=== PATIENT | male | born 1930 | race Caucasian/White ===

== ENCOUNTER → 2017-02-05 | Outpatient (CLI) | payer MEDICARE, OTHER ==
[~2017-02-05] MED LIST: LEVO25TA49
[2017-02-05 11:04] LABS: Urine Bilirubin Negative (Negative); Urine Blood Negative /uL (Negative); Urine Color Yellow (Yellow); Urine Glucose Normal (Normal); Urine Ketone Negative (Negative); Urine Nitrite Negative (Negative); Urine RBC <1 /hpf (0 - 3); Urine Squamous Epithelial Cell FEW /hpf (<5)
[2017-02-05 11:09] LABS: Basophils # (auto) 0 uL; Basophils % (auto) 0.5 % (0.0-2.0); Eosinophils # (auto) 0.3 uL; Eosinophils % (auto) 3.7 % (0.0-7.0); Hematocrit 43.8 % (41.0-53.0); Hemoglobin 14.6 g/dL (13.5-17.5); Lymphocytes # (auto) 1.1 uL; Mean Corpuscular Hemoglobin 29.4 pg (28.0-32.0); Mean Corpuscular Hgb Conc. 33.3 g/dL (32.0-36.0); Mean Corpuscular Volume 88.2 fL (80.0-100.0); Mean Platelet Volume 7.3 fL (7.4-10.4); Monocytes # (auto) 0.4 uL; Monocytes % (auto) 5.2 % (0.0-12.0); Neutrophils # (auto) 5.1 uL; Neutrophils % (auto) 74.6 % (37.0-80.0); Platelet Count (auto) 286 10^3/uL (140-450); Red Cell Distribution Width 13.8 % (11.6-16.0); White Blood Cell 6.9 10^3/uL (4.4-10.8)
[2017-02-05 11:18] LABS: INR 1.1 (0.9-1.15); Partial Thromboplastin Time 27.2 sec (22.64-33.71); Prothrombin Time 11.3 sec (9.37-12.3)
[2017-02-05 11:58] LABS: Albumin 3.9 g/dL (3.4-5.0); BUN/Creatinine Ratio 23.1; Bilirubin, Total 0.7 mg/dL (0.2-1.0); Calcium 8.9 mg/dL (8.5-10.1); Potassium 4.6 mmol/L (3.5-5.1); Total Protein 6.8 g/dL (6.4-8.2)
== END | disposition home or self-care (01) ==
LOC: LAB 10:15
PROVIDERS: ATTEND Orthopaedic Surgery
DX: S83.211A Bucket-handle tear of medial meniscus, current injury, right knee, initial encounter (principal)
CPT/HCPCS: 36415; 80053; 81001; 85025; 85610; 85730